=== PATIENT | female | born 1965 | race Caucasian/White ===

== ENCOUNTER 2017-03-23 15:25 | Emergency (ER) | payer OTHER ==
--- NOTE | ~2017-03-23 | CR126 ---
[facility] A Service of [facility] & [facility] RADIOLOGY TEXT RESULTS PATIENT: NAHID LEYVA LOCATION: [facility] : 65 UNIT #: [id number] AGE: [address]: Chana Martínez APRN SEX: F ORDER DR: [id number] [facility] [address] [place], [place] [address] [id number] E MR#: [id number] Acc #: [id number] NAME: NAHID LEYVA : 1965 SEX: F STUDY DATE/TIME: 03/23/2017 15:41 UNIT: [facility] ROOM: STUDY DESCRIPTION: CR Foot Complete Min 3 View Lt Attending Physician: Chana Martínez A.P.R.N. Ordering Physician: [facility] Primary Care Physician: No Primary Care Physician MEDICAL IMAGING REPORT This report is preliminary unless electronic signature is present EXAM Left foot HISTORY Foot pain laterally on the left after falling in a hole yesterday. TECHNIQUE Three views of the foot were obtained. FINDINGS The tarsal, metatarsal, and phalangeal elements are all anatomically normal in position and alignment. There are no articular defects. No fractures or radiopaque foreign bodies in the soft tissues are apparent. IMPRESSION Normal foot. Dictated by... Ernst Enrique M.D. THIS IS AN ELECTRONICALLY VERIFIED REPORT Ernst Enrique M.D. at 03/24/2017 3:41 PM SCOTTY/gaby TD: 03/23/2017 18:22 JOB #: [id number] MEDICAL IMAGING REPORT Page 1 of 1 COPY
--- NOTE | ~2017-03-23 | CR20 ---
[facility] A Service of [facility] & [facility] RADIOLOGY TEXT RESULTS PATIENT: NAHID LEYVA LOCATION: [facility] : 65 UNIT #: [id number] AGE: [address]: Chana Martínez APRN SEX: F ORDER DR: [id number] [facility] [address] [place], [place] [address] [id number] E MR#: [id number] Acc #: [id number] NAME: NAHID LEYVA : 1965 SEX: F STUDY DATE/TIME: 03/23/2017 15:41 UNIT: [facility] ROOM: STUDY DESCRIPTION: CR Ankle Min 3 Views Lt Attending Physician: Chana Martínez A.P.R.N. Ordering Physician: Ed Tomás Calhoun M.D. Primary Care Physician: Primary Care Physician No MEDICAL IMAGING REPORT This report is preliminary unless electronic signature is present EXAM Left ankle HISTORY Left ankle pain and swelling after falling in a hole yesterday. TECHNIQUE 3 views of the left ankle were obtained. FINDINGS 2 views of the left ankle show lateral soft tissue swelling. There is chronic ossification adjacent to the distal fibular tip from previous injury. I do not see a definite acute fracture. The ankle mortise is symmetric. The dome of the talus is intact. 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 There is soft tissue swelling but I do not see any acute fractures. Dictated by... Ernst Enrique M.D. THIS IS AN ELECTRONICALLY VERIFIED REPORT Ernst Enrique M.D. at 03/24/2017 3:41 PM RLF/mulugeta TD: 03/23/2017 19:14 JOB #: [id number] MEDICAL IMAGING REPORT Page 1 of 1 COPY
--- NOTE | ~2017-03-23 | CR173 ---
[facility] A Service of [facility] & [facility] RADIOLOGY TEXT RESULTS PATIENT: NAHID LEYVA LOCATION: [facility] : 65 UNIT #: [id number] AGE: [address]: Chana Martínez APRN SEX: F ORDER DR: [id number] [facility] [address] [place], [place] [address] [id number] E MR#: [id number] Acc #: [id number] NAME: NAHID LEYVA : 1965 SEX: F STUDY DATE/TIME: 03/23/2017 15:40 UNIT: [facility] ROOM: STUDY DESCRIPTION: CR Knee 3 Views Rt Attending Physician: Chana Martínez A.P.R.N. Ordering Physician: Ed Tomás Calhoun M.D. Primary Care Physician: No Primary Care Physician MEDICAL IMAGING REPORT This report is preliminary unless electronic signature is present EXAM Right knee series 03/23/2017. HISTORY Trauma. Fell in a hole. Pain in left knee, left ankle, left foot. Swelling 1 day duration. TECHNIQUE AP, lateral, and sunrise views of the left knee are presented. FINDINGS No traumatic fracture or malalignment. Joint spaces intact. No soft tissue defect, subcutaneous air, or radiodense foreign body. No joint effusion. Dictated by... Chandu Lisa M.D. THIS IS AN ELECTRONICALLY VERIFIED REPORT Chandu Lisa M.D. at 03/24/2017 6:31 PM MICHEL/rocky TD: 03/23/2017 19:03 JOB #: [id number] MEDICAL IMAGING REPORT Page 1 of 1 COPY
[~2017-03-23 15:25] MED LIST: ACETAMINOOPHEN-1 TAB PO; DOXYCYCLINE HY100 M1 PO; KEFLEX500 MG PO; NAPROSYN500 MG PO; NO MEDICATIONS; PEN-VEE K PO; ROBAXIN500 MG PO; SILVADENE TOP; TYLENOL #3 PO
== END 2017-03-23 16:40 | disposition home or self-care (01) ==
LOC: CFTX 15:25 → CED 15:25 → CFTX 16:08
DX: S83.91XA Sprain of unspecified site of right knee, initial encounter (principal); S93.422A Sprain of deltoid ligament of left ankle, initial encounter; R56.9 Unspecified convulsions; F17.200 Nicotine dependence, unspecified, uncomplicated; Z98.51 Tubal ligation status; X50.1XXA Overexertion from prolonged static or awkward postures, initial encounter; Y92.9 Unspecified place or not applicable
CPT/HCPCS: 29530; 29540; 73562; 73610; 73630; 99283